=== PATIENT | male | born 1955 | race Caucasian/White ===

== ENCOUNTER 2018-02-18 08:18 | Inpatient (IN) | payer OTHER ==
[2018-02-18] VITALS (8 sets, daily range): BP systolic 106–174; BP diastolic 65–91
[~2018-02-18] VITALS: Ht 190.5 cm; Wt 120.7 kg
--- NOTE | ~2018-02-18 | EKG ---
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
--- NOTE | ~2018-02-18 | CATHLAB ---
[facility] [address] [place] [address] INVASIVE PROCEDURE REPORT Name: MILTONTETE Room #: 210-P [facility] IN [facility].#: [id number] Admission: 02/18/18 Attend Phys: Sy Villasenor MD Discharge: Date of : 55 Date of Service: 02/21/18 1035 Report #: [id number] THIS REPORT FOR: //name// APPROVED REPORT Study performed: 02/18/2018 16:18:49 Patient Details Patient Status: In-Patient Room #: The patient is a 63 year-old male Event Personnel Con Miranda Dehydration Plant Operator, Monique Pena [place], Christine RTR Monitor, Martin, Denisa RN RN, Sanjeev Bautista RN water plant pump operator Performed Art Access - R femoral artery* Left Heart Cath w/or w/o Coronaries [id number] [facility] [address] Initial Mod Sed Same Phys/QHP Gr5y [id number] Hemostasis with Manual pressure supervision of conscious sedation Indication Positive stress test, Chest pain Procedure Narrative The patient was brought urgently to the Cardiac Catheterization Laboratory and was prepped and draped in a sterile manner. The Right Groin^ was infiltrated with 1% Lidocaine subcutaneous anesthesia. A PINNACLE 6FR Sheath #[id number] sheath was inserted into the RFA^. Coronary angiography was performed using coronary diagnostic catheters. The right coronary system was accessed and visualized with a JR 4 catheter. The left coronary system was accessed and visualized with a JL 4 catheter. The left ventricle was accessed and visualized with a Pigtail catheter. Left ventricular/Aortic Valve gradient assessed via catheter pullback. Hemostasis was obtained with manual pressure following sheath removal without any complications. The patient tolerated the procedure well and there were no complications associated with the procedure. There was no hematoma. Intraoperative Conscious Sedation Sedation start time: 17:12 Case end Time: 17:23 Versed 2 mg [facility] [place] [address] INVASIVE PROCEDURE REPORT Name: TETE ROSE Room #: 210-P [facility] IN [facility]#: [id number] Admission: 02/18/18 Attend Phys: Sy Villasenor MD Discharge: Date of : 55 Date of Service: 02/21/18 1035 Report #: [id number] Fluoro Time: 2.20 minutes Dose: DAP 4566.50 cGycm2 572 mGy Contrast Type and Amount: Omnipaque 55 ml Coronary Angiography The patient's coronary anatomy is right dominant. Diagnostic Cath Left Main In his normal origin and caliber mildly calcified on fluoroscopic visualization. It bifurcates left anterior descending left circumflex. The distal portion has a taper and there is echogenicity consistent with calcific plaquing Eccentric noted. This is greater than 50%. LAD Small-caliber vessel has an eccentric 90% ostial lesion which is calcified and then continues in the anterior interventricular sulcus giving rise to septal and diagonal branches with moderate diffuse irregularities Diagonal 1 Small-caliber vessel without significant high-grade lesions noted Circumflex Moderate caliber vessel arises from the left main with an eccentric 70% or greater lesion identified. It is calcified. Then continues in the AV groove giving rise to marginal branches which are all free of significant high-grade stenosis OM1 Small caliber so this appears 7 ostial lesion but beyond that is free of significant obstructive no lesions Right Coronary Totally occluded at its origin and feels. Collaterals providing a posterior wall branch and posterior descending artery which have a mild irregularities R PDA Caliber vessel filling via [id number] collaterals without significant high-grade obstructive lesions Left Ventriculography Left Ventriculography was not performed. Hemodynamics The aortic pressure is 98/60 mmHg with a mean of 79 mmHg. The left ventricular pressure is 110/10 mmHg with a mean of mmHg. The left ventricular end diastolic pressure is 15 mmHg. Conclusion 1. Coronary disease multivessel involving the distal left main and proximal left circumflex and left anterior descending arteries as well as a totally occluded RCA 2. Abnormal hemodynamics elevated left ventricular end-diastolic [facility] [address] [place] [address] INVASIVE PROCEDURE REPORT Name: TETE ROSE Room #: 210-P [facility] IN M.R.#: [id number] Admission: 02/18/18 Attend Phys: Sy Villasenor MD Discharge: Date of : 55 Date of Service: 02/21/18 1035 Report #: [id number] Recommendations CABG <ELECTRONICALLY SIGNED> By: Con Miranda MD 02/21/185 34 34 Con Miranda MD /INF
--- NOTE | ~2018-02-18 | EXE ---
[facility] [place] [address] STRESS ECHOCARDIOGRAM Name: TETE ROSE Room #: 210-P [facility] IN [facility]#: [id number] Admission: 02/18/18 Attend Phys: Sy Villasenor MD Discharge: Date of : 55 Date of Service: 02/18/18 1813 Report #: [id number] THIS REPORT FOR: //name// APPROVED REPORT Study performed: 02/18/2018 15:30:08 Exam: Stress Echocardiogram Indication: Chest pain Patient Location: In-Patient Room #: 450 Status: routine Ht: 6 ft 3 in HR: 73 bpm BP: 140/88 mmHg Medical History Medical History: HTN, Hyperlipidemia Exercise History: Indeterminate Procedure The patient underwent an Exercise Stress Test using the [facility] Protocol. Blood pressure, heart rate, and EKG were monitored. An Echocardiogram was performed by highway technician in four stages in quad fashion. At peak stress, four selected images were obtained and placed side by side with resting images for comparison. Stress Test Details Stress Test: Exercise stress testing was performed using a [facility] protocol. HR Resting HR: 73 bpm Max Heart Rate (APMHR): 157 bpm Max HR Achieved: 162 bpm Target HR (85% APMHR): 133 bpm % of APMHR: 103 Recovery HR: 109 bpm HR response to stress: Normal HR response to stress BP Resting BP: 140/88 mmHg Max BP: 150/80 mmHg ECG Resting ECG: Sinus Rhythm Stress ECG: Sinus Tachycardia ST Change: Horizontal ST depression [facility] [place] [address] STRESS ECHOCARDIOGRAM Name: TETE ROSE Room #: 210-P [facility]#: [id number] Admission: 02/18/18 Attend Phys: Sy Villasenor MD Discharge: Date of : 55 Date of Service: 02/18/18 1813 Report #: [id number] Arrhythmia: None Recovery ECG: Sinus Rhythm Clinical Reason for Termination: Chest pain/Anginal equivalent Stress Symptoms: Chest pain Exercise duration: 3 min 30 sec Highest Stage Achieved: Stage 2: 2.5 mph at 12% grade. Exercise capacity: 8 METs Overall Exercise Capacity for Age: Poor Stress ECG Conclusion 1. Subjectively abnormal with reproduction of chest pain 2. Electrocardiographically abnormal with st changes consistent with ischemia 3. Poor functional capacity Pre-Stress Echo The resting Echocardiogram showed normal left ventricular contractility with an estimated Ejection Fraction of about >55%. Normal wall motion in all segments on baseline images. Post-Stress Echo The stress Echocardiogram showed abnormal left ventricular contractility with an estimated Ejection Fraction of about 40-45%. development of akinesis of the apex and adjacent casanova. Conclusion Clinical Response: Ischemic Exercise Capacity: Below Average Stress ECG Response: Ischemic Stress Echo Images: Ischemic 1. HIGH RISK STUDY Other Information Study Quality: Fair <Conclusion> 1. HIGH RISK STUDY <ELECTRONICALLY SIGNED> By: Con Miranda MD 02/18/181812 12 12 Con Miranda MD /INF
--- NOTE | ~2018-02-18 | EKG ---
[place] [address] [facility] [employer] 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 : 1955 Requested By: Judith Knight Order Number: [id number] MD: Boo Olea Measurements Intervals [place] Rate: 89 P: 28 [place]: 148 QRS: -19 QRSD: 103 T: 39 QT: 390 QTc: 475 Interpretive Statements Sinus rhythm Poor R wave progression RSR' in V1 or V2, probably normal variant ST elevation, consider pericarditis Compared to ECG 02/22/2018 15:29:20 No significant change was found Electronically Signed On 02-23-2018 7:55:13 CDT by Boo Olea [email or web address] <ELECTRONICALLY SIGNED> By: Boo Olea MD, [facility] 02/23/18 0755 Boo Olea MD, [facility] /EPI
--- NOTE | ~2018-02-18 | EKG ---
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: Cinthya HYDE : 1955 Requested By: Judith Knight Order Number: [id number] MD: Jhoan Newton Measurements Intervals [place] Rate: 89 P: 46 ME: 186 QRS: -10 QRSD: 103 T: 59 QT: 383 QTc: 467 Interpretive Statements Sinus rhythm Low voltage, precordial leads Abnormal R-wave progression, early transition Minimal ST elevation, anterior leads Compared to ECG 02/18/2018 08:26:19 Low QRS voltage now present ST (T wave) deviation now present Intraventricular conduction delay no longer present Electronically Signed On 02-22-2018 16:39:30 CDT by Jhoan Newton [email or web address] <ELECTRONICALLY SIGNED> By: Jhoan Newton MD 02/22/18 1639 1529 1529 Jhoan Newton MD /EPI
--- NOTE | ~2018-02-18 | 2DMMODE ---
[place] [address] [facility] [place] [address] 2 D/M-MODE ECHOCARDIOGRAM Name: BOO ROSE Room #: 450-P [facility] IN .R.#: [id number] Admission: 02/18/18 Attend Phys: Sy Villasenor MD Discharge: Date of : 55 Date of Service: 02/18/18 1533 Report #: [id number] THIS REPORT FOR: //name// APPROVED REPORT Study performed: 02/18/2018 13:53:10 EXAM: Comprehensive 2D, Doppler, and color-flow Echocardiogram Patient Location: Echo lab Room #: [facility] Status: routine BSA: 2.45 HR: 62 bpm BP: 139/87 mmHg Rhythm: NSR Other Information Study Quality: Adequate Technically limited study due to obesity. Indications Chest pain. Hx: HTN, HLP. 2D Dimensions RVDd: 38.77 mm LVEF(%): 49.76 (>50%) IVSd: 11.92 (7-11mm) LVOT Diam: 23.21 (18-24mm) LVDd: 57.92 mm PWd: 8.70 (7-11mm) LVDs: 43.07 (25-40mm) Aortic Root: 34.32 mm Boothe's LVEF: 49.76 % Volumes Left Atrial Volume (Systole) Single Plane 4CH: 65.69 mL Single Plane 2CH: 52.31 mL LA ESV Index: 26.00 mL/m2 Aortic Valve AoV Peak Ollie.: 1.42 m/s AO Peak Gr.: 8.09 mmHg LVOT Max P.43 mmHg LVOT Max V: 1.05 m/s DAVID Vmax: 3.13 cm2 Mitral Valve E/A Ratio: 1.3 [facility] [place] [address] 2 D/M-MODE ECHOCARDIOGRAM Name: BOO ROSE Room #: [address] [place] [address]#: [id number] Admission: 02/18/18 Attend Phys: Sy Villasenor MD Discharge: Date of : 55 Date of Service: 02/18/18 1533 Report #: [id number] MV Decel. Time: 214.05 ms MV E Max Ollie.: 0.70 m/s MV A Ollie.: 0.54 m/s MV PHT: 62.08 ms IVRT: 87.66 ms Pulmonary Valve PV Peak Lolie.: 1.23 m/s PV Peak Gr.: 6.07 mmHg Pulmonary Vein P Vein S: 0.57 m/s P Vein A: 0.31 m/s P Vein D: 0.65 m/s P Vein S/D Ratio: 0.88 Tricuspid Valve TR Peak Ollie.: 2.46 m/s RAP Estimate: 5.00 mmHg TR Peak Gr.: 24.11 mmHg PA Pressure: 29.00 mmHg Left Ventricle The left ventricle is normal size. There is normal LV segmental wall motion. There is normal left ventricular wall thickness. Left ventricular systolic function is normal. LVEF is 55%. The left ventricular diastolic function is normal. Right Ventricle The right ventricle is normal size. The right ventricular systolic function is normal. Atria The left atrium size is normal. The right atrium size is normal. Aortic Valve The aortic valve is normal in structure. No aortic regurgitation is present. There is no aortic valvular stenosis. Mitral Valve The mitral valve is normal in structure. Difficult to characterize. Mild to moderate range. Tricuspid Valve The tricuspid valve is normal in structure. Trace to mild tricuspid regurgitation. Estimated PAP is 30mmHg. Pulmonic Valve [address] [address] 2 D/M-MODE ECHOCARDIOGRAM Name: BOO ROSE Room #: 450-P [facility] IN ..#: [id number] Admission: 02/18/18 Attend Phys: Sy Villasenor MD Discharge: Date of : 55 Date of Service: 02/18/18 1533 Report #: [id number] Pulmonic valve is not well visualized. Great Vessels The aortic root is normal in size. Ascending aorta is not well visualized. IVC is normal in size and collapses >50% with inspiration. Pericardium There is no pericardial effusion. <Conclusion> Technically difficult study Left ventricular systolic function is normal. There is normal LV segmental wall motion. LVEF 55%. Normal diastolic function The aortic valve is normal in structure. No aortic regurgitation or stenosis The mitral valve is normal in structure. Difficult to characterize insufficiency. Mild to moderate range. Trace to mild tricuspid regurgitation. Estimated pulmonary artery pressure of 30mmHg. There is no pericardial effusion. <ELECTRONICALLY SIGNED> By: Boo Olea MD, FACC 02/18/18 1533 1533 1533 Boo Olea MD, FACC /INF
[2018-02-18 08:44] LABS: ABSOLUTE NEUTROPHILS 2.5 thou/uL (1.4-8.2); EOSINOPHILS 1.7 % (0.0-3.0); HEMOGLOBIN 14.4 gm/dL (14.0-18.0); LYMPHOCYTES 29.4 % (24.0-44.0); MCH 33.8 pg (26.0-34.0); MCHC 35.1 g/dL (28.0-37.0); MCV 96.4 fL (80.0-100.0); MONOCYTES 10.1 % (1.0-8.0); PLATELET COUNT 150 thou/uL (150-400); POLYS 57.8 % (36.0-66.0); RBC 4.25 mil/uL (4.50-6.00); RDW 12.5 % (10.5-14.5); WBC 4.3 thou/uL (4.0-11.0)
[2018-02-18 08:53] LABS: ANION GAP 7 mmol/L (7-16); BUN 12 mg/dL (7-18); CALCIUM 9.3 mg/dL (8.5-10.1); CHLORIDE 106 mmol/L (98-107); CO2 27 mmol/L (21-32); CREATININE 0.9 mg/dL (0.7-1.3); GLUCOSE 135 mg/dL (74-106); SODIUM 140 mmol/L (136-145)
[2018-02-18 09:02] LABS: TROPONIN-I < 0.04 ng/mL (<0.06)
[2018-02-18] MEDS ORDERED: CARDURA4 MG PO (10:20)
[2018-02-18] MEDS ORDERED: LISINOPRIL10 MG PO (10:20)
[2018-02-18] MEDS ORDERED: FENOFIBRATE160 MG PO (10:21)
[2018-02-18] MEDS ORDERED: PROTONIX40 M1 PO (10:21)
[2018-02-18] MEDS ORDERED: LOVAZA1000 MG PO (10:22)
[2018-02-18] MEDS ORDERED: NABUMETONE 500500 M1 PO (10:22)
[2018-02-18] MEDS ORDERED: LIPITOR 20 MG T20 M1 PO (10:22)
[2018-02-19 00:10] VITALS: BP 115/73
[2018-02-19 04:37] LABS: HEMATOCRIT 37.6 % (42.0-52.0); HEMOGLOBIN 13.5 gm/dL (14.0-18.0); MCH 34.5 pg (26.0-34.0); MCHC 35.9 g/dL (28.0-37.0); MCV 96.2 fL (80.0-100.0); RBC 3.91 mil/uL (4.50-6.00); RDW 12.6 % (10.5-14.5); WBC 5.5 thou/uL (4.0-11.0)
[2018-02-19 04:53] LABS: ANION GAP 7 mmol/L (7-16); BUN 12 mg/dL (7-18); CALCIUM 8.7 mg/dL (8.5-10.1); CHLORIDE 105 mmol/L (98-107); CHOLESTEROL 146 mg/dL (<200); CO2 26 mmol/L (21-32); GLUCOSE 120 mg/dL (74-106); HDL CHOLESTEROL 31 mg/dL (>40); LDL CHOLESTEROL 63 mg/dL (<100); POTASSIUM 4.2 mmol/L (3.5-5.1); SODIUM 138 mmol/L (136-145); TC:HDL 4.7 Ratio (Not establshd); TRIGLYCERIDE 264 mg/dL (<150); VLDL 53 mg/dL (<40)
[2018-02-19 04:54] LABS: SERUM ASSESSMENT Clear
[2018-02-19 05:40] VITALS: BP 135/87
[2018-02-19 08:00] VITALS: BP 136/88
[2018-02-19 12:00] VITALS: BP 103/85
[2018-02-19 16:00] VITALS: BP 131/64
[2018-02-19 19:47] VITALS: BP 117/73
[2018-02-19 21:22] LABS: ALBUMIN 3.6 g/dL (3.4-5.0); CALCIUM 8.7 mg/dL (8.5-10.1); CREATININE 0.9 mg/dL (0.7-1.3); POTASSIUM 3.6 mmol/L (3.5-5.1); TOTAL BILIRUBIN 0.6 mg/dL (<0.1-1.0); TOTAL PROTEIN 6.3 g/dL (6.4-8.2)
[2018-02-20 04:58] VITALS: BP 112/62
[2018-02-20 05:00] LABS: CALCIUM 9.3 mg/dL (8.5-10.1)
[2018-02-20 08:10] VITALS: BP 149/76
[2018-02-20 11:40] VITALS: BP 102/70
[2018-02-20 16:15] VITALS: BP 128/69
[2018-02-20 21:33] VITALS: BP 135/69
[2018-02-20 23:42] LABS: ALBUMIN 4.1 g/dL (3.4-5.0); DIRECT BILIRUBIN 0.2 mg/dL (<0.1-0.3); TOTAL BILIRUBIN 0.7 mg/dL (<0.1-1.0); TOTAL PROTEIN 6.8 g/dL (6.4-8.2)
[2018-02-21] VITALS (7 sets, daily range): BP systolic 104–155; BP diastolic 58–87
[2018-02-21 03:57] LABS: APTT 23.3 Seconds (24.5-32.8); PROTIME 10.6 Seconds (9.3-11.4)
[2018-02-21 10:10] LABS: GLYCOHEMOGLOBIN (HGB A1C) 5.3 % (4.8-5.6)
[2018-02-21 11:06] LABS: URINE BILIRUBIN NEGATIVE (Negative); URINE BLOOD NEGATIVE (Negative); URINE CLARITY CLEAR; URINE COLOR YELLOW; URINE GLUCOSE-RANDOM* NEGATIVE (Negative); URINE KETONES NEGATIVE (Negative); URINE LEUKOCYTES-REFLEX NEGATIVE (Negative); URINE NITRITE-REFLEX NEGATIVE (Negative); URINE PROTEIN (DIPSTICK) NEGATIVE (Negative); URINE UROBILINOGEN 0.2 E.U./dl (0.2-1.0)
[2018-02-21 11:24] LABS: HEMATOCRIT 38.3 % (42.0-52.0); HEMOGLOBIN 13.4 gm/dL (14.0-18.0); MCH 33.6 pg (26.0-34.0); MCHC 35.1 g/dL (28.0-37.0); MCV 95.8 fL (80.0-100.0); RDW 12.2 % (10.5-14.5)
[2018-02-22 06:25] VITALS: BP 154/86
[2018-02-22 12:36] LABS: MCH 34.7 pg (26.0-34.0); MCHC 36.2 g/dL (28.0-37.0); MCV 96.1 fL (80.0-100.0); RBC 2.82 mil/uL (4.50-6.00); RDW 12.2 % (10.5-14.5)
[2018-02-22 12:37] LABS: HEMATOCRIT 27.1 % (42.0-52.0); HEMOGLOBIN 9.8 gm/dL (14.0-18.0)
[2018-02-22 12:50] LABS: APTT 21.9 Seconds (24.5-32.8); INR 1.3; PROTIME 13.1 Seconds (9.3-11.4)
[2018-02-22 12:51] LABS: FIBRINOGEN 144.5 mg/dL (210-360)
[2018-02-22 13:22] LABS: POC BE 5 mmol/L (-2.0 to +3.0); POC CA IONIZED 4.8 mg/dL (4.5-5.3); POC GLUCOSE 121 mg/dL (70-99); POC HCO3 29.7 mmol/L (22.0-26.0); POC HEMOGLOBIN 10.9 g/dL (14.0-18.0); POC POTASSIUM 4.4 mmol/L (3.5-5.1); POC SODIUM 138 mmol/L (136-145); POC pCO2 44.3 mmHg (35.0-45.0); POC pH 7.435 (7.360-7.450)
[2018-02-22 13:22] LABS: POC CA IONIZED 4.5 mg/dL (4.5-5.3); POC GLUCOSE 142 mg/dL (70-99); POC HEMOGLOBIN 10.2 g/dL (14.0-18.0); POC POTASSIUM 4.5 mmol/L (3.5-5.1); POC SODIUM 138 mmol/L (136-145)
[2018-02-22 13:22] LABS: POC BE 1 mmol/L (-2.0 to +3.0); POC CA IONIZED 4.4 mg/dL (4.5-5.3); POC GLUCOSE 146 mg/dL (70-99); POC HCO3 26.1 mmol/L (22.0-26.0); POC HEMOGLOBIN 10.2 g/dL (14.0-18.0); POC POTASSIUM 4.4 mmol/L (3.5-5.1); POC SODIUM 137 mmol/L (136-145); POC pCO2 44.5 mmHg (35.0-45.0); POC pH 7.376 (7.360-7.450)
[2018-02-22 13:22] LABS: POC BE 2 mmol/L (-2.0 to +3.0); POC CA IONIZED 4.6 mg/dL (4.5-5.3); POC GLUCOSE 117 mg/dL (70-99); POC HCO3 27.1 mmol/L (22.0-26.0); POC HEMOGLOBIN 10.5 g/dL (14.0-18.0); POC POTASSIUM 4.4 mmol/L (3.5-5.1); POC SODIUM 138 mmol/L (136-145); POC pCO2 44.7 mmHg (35.0-45.0)
[2018-02-22 13:23] LABS: POC BE 2 mmol/L (-2.0 to +3.0); POC CA IONIZED 4.5 mg/dL (4.5-5.3); POC GLUCOSE 144 mg/dL (70-99); POC HCO3 26.9 mmol/L (22.0-26.0); POC HEMOGLOBIN 9.5 g/dL (14.0-18.0); POC POTASSIUM 4.7 mmol/L (3.5-5.1); POC SODIUM 137 mmol/L (136-145); POC pCO2 44.6 mmHg (35.0-45.0); POC pH 7.388 (7.360-7.450)
[2018-02-22 13:23] LABS: POC BE 0 mmol/L (-2.0 to +3.0); POC CA IONIZED 5.7 mg/dL (4.5-5.3); POC GLUCOSE 145 mg/dL (70-99); POC HCO3 25.4 mmol/L (22.0-26.0); POC HEMOGLOBIN 9.5 g/dL (14.0-18.0); POC POTASSIUM 3.8 mmol/L (3.5-5.1); POC SODIUM 140 mmol/L (136-145); POC pCO2 45.2 mmHg (35.0-45.0); POC pH 7.357 (7.360-7.450)
[2018-02-22 13:23] LABS: POC BE 1 mmol/L (-2.0 to +3.0); POC HCO3 26.1 mmol/L (22.0-26.0); POC pCO2 45.5 mmHg (35.0-45.0); POC pH 7.367 (7.360-7.450)
[2018-02-22 13:23] LABS: POC BE 1 mmol/L (-2.0 to +3.0); POC CA IONIZED 4.4 mg/dL (4.5-5.3); POC GLUCOSE 148 mg/dL (70-99); POC HCO3 25.2 mmol/L (22.0-26.0); POC HEMOGLOBIN 9.2 g/dL (14.0-18.0); POC POTASSIUM 4.7 mmol/L (3.5-5.1); POC SODIUM 138 mmol/L (136-145); POC pCO2 36.9 mmHg (35.0-45.0); POC pH 7.443 (7.360-7.450)
[2018-02-22 13:23] LABS: POC BE 2 mmol/L (-2.0 to +3.0); POC CA IONIZED 6.2 mg/dL (4.5-5.3); POC GLUCOSE 182 mg/dL (70-99); POC HCO3 27.4 mmol/L (22.0-26.0); POC HEMOGLOBIN 8.8 g/dL (14.0-18.0); POC POTASSIUM 3.9 mmol/L (3.5-5.1); POC SODIUM 137 mmol/L (136-145); POC pCO2 45.4 mmHg (35.0-45.0)
[2018-02-22 13:23] LABS: POC BE 0 mmol/L (-2.0 to +3.0); POC GLUCOSE 207 mg/dL (70-99); POC HCO3 25.2 mmol/L (22.0-26.0); POC HEMOGLOBIN 8.8 g/dL (14.0-18.0); POC POTASSIUM 4.8 mmol/L (3.5-5.1); POC SODIUM 134 mmol/L (136-145); POC pCO2 40.5 mmHg (35.0-45.0); POC pH 7.401 (7.360-7.450)
[2018-02-22 14:35] LABS: MCH 34.3 pg (26.0-34.0); MCHC 35.5 g/dL (28.0-37.0); MCV 96.7 fL (80.0-100.0); RBC 3.21 mil/uL (4.50-6.00); RDW 12.3 % (10.5-14.5); WBC 12.6 thou/uL (4.0-11.0)
[2018-02-22 14:40] LABS: CALCIUM 9.3 mg/dL (8.5-10.1); CREATININE 0.9 mg/dL (0.7-1.3); MAGNESIUM 2.4 mg/dL (1.8-2.4); POTASSIUM 4.2 mmol/L (3.5-5.1)
[2018-02-22 14:49] LABS: APTT 24.3 Seconds (24.5-32.8); INR 1.2
[2018-02-23] VITALS (7 sets, daily range): BP systolic 91–141; BP diastolic 56–70
[2018-02-23 05:35] LABS: HEMATOCRIT 30.5 % (42.0-52.0); HEMOGLOBIN 10.8 gm/dL (14.0-18.0); MCH 34.3 pg (26.0-34.0); MCHC 35.3 g/dL (28.0-37.0); MCV 97.1 fL (80.0-100.0); RBC 3.15 mil/uL (4.50-6.00); RDW 12.5 % (10.5-14.5); WBC 10.7 thou/uL (4.0-11.0)
[2018-02-23 05:49] LABS: CALCIUM 8.4 mg/dL (8.5-10.1); CREATININE 1.1 mg/dL (0.7-1.3); MAGNESIUM 1.9 mg/dL (1.8-2.4)
[2018-02-24] VITALS: BP 114/88
[2018-02-24 03:56] VITALS: BP 114/74
[2018-02-24 04:13] LABS: CALCIUM 8.5 mg/dL (8.5-10.1); MAGNESIUM 1.9 mg/dL (1.8-2.4); POTASSIUM 4.2 mmol/L (3.5-5.1)
[2018-02-24 04:40] LABS: HEMATOCRIT 28.3 % (42.0-52.0); MCH 34.3 pg (26.0-34.0); MCHC 35.4 g/dL (28.0-37.0); RBC 2.91 mil/uL (4.50-6.00); RDW 12.7 % (10.5-14.5); WBC 12.6 thou/uL (4.0-11.0)
[2018-02-24 07:06] VITALS: BP 122/76
[2018-02-24 09:37] LABS: BE(vivo) -6.3 mmol/L (-2 to +3); HCO3 19.8 mmol/L (22.0-26.0); PCO2 41.5 mmHg (35.0-45.0); PO2 148.4 mmHg (80.0-100.0); sO2 98.7 % (92.0-98.0)
[2018-02-24 09:44] LABS: pH 7.296 (7.360-7.450)
[2018-02-24 09:52] LABS: HCO3 21.1 mmol/L (22.0-26.0); PCO2 38.4 mmHg (35.0-45.0); PO2 123.4 mmHg (80.0-100.0); pH 7.357 (7.360-7.450); sO2 98.3 % (92.0-98.0)
[2018-02-24 11:03] VITALS: BP 124/72
[2018-02-24 15:04] VITALS: BP 129/67
[2018-02-24 19:58] VITALS: BP 134/78
[2018-02-25] VITALS (7 sets, daily range): BP systolic 121–146; BP diastolic 66–76
[2018-02-25 04:05] LABS: CALCIUM 9.3 mg/dL (8.5-10.1); CREATININE 0.9 mg/dL (0.7-1.3); POTASSIUM 4.1 mmol/L (3.5-5.1)
[2018-02-25] MEDS ORDERED: LOPRESSOR25 PO (09:11)
[2018-02-25] MEDS ORDERED: ASPIRIN EC325 M1 PO (09:11)
[2018-02-25] MEDS ORDERED: SENNA-TIME S T1 EACH PO (09:11)
[2018-02-25] MEDS ORDERED: PACERONE 200 M200 M1 PO (17:46)
== END 2018-02-25 18:47 | disposition home or self-care (01) | DRG 233 ==
LOC: ER 08:18 → EROBS 09:55 → 4W 09:55 → 2N 09:55 → 4W 10:45 → 2N 17:57 → TBA 02-22 07:22 → ICU 02-22 14:20 → 2N 02-23 17:10 → ENTRNSPT 02-25 18:34 → 2N 02-25 18:47
PROVIDERS: Emergency Medicine; Family Medicine; Hospitalist; Internal Medicine; Internal Medicine Geriatric Medicine; Nurse Practitioner; Nurse Practitioner Acute Care; Nurse Practitioner Adult Health; Thoracic Surgery (Cardiothoracic Vascular Surgery)
PROC: B2111ZZ Fluoroscopy of Multiple Coronary Arteries using Low Osmolar Contrast (ICD-10-PCS; principal; 2018-02-21)
PROC: 4A023N7 Measurement of Cardiac Sampling and Pressure, Left Heart, Percutaneous Approach (ICD-10-PCS; principal; 2018-02-21)
PROC: 5A1221Z Performance of Cardiac Output, Continuous (ICD-10-PCS; 2018-02-22)
PROC: 03BC4ZZ Excision of Left Radial Artery, Percutaneous Endoscopic Approach (ICD-10-PCS; 2018-02-22)
PROC: 02HQ32Z Insertion of Monitoring Device into Right Pulmonary Artery, Percutaneous Approach (ICD-10-PCS; 2018-02-22)
PROC: 0BH17EZ Insertion of Endotracheal Airway into Trachea, Via Natural or Artificial Opening (ICD-10-PCS; 2018-02-22)
PROC: 4A133J1 Monitoring of Arterial Pulse, Peripheral, Percutaneous Approach (ICD-10-PCS; 2018-02-22)
PROC: 021109W Bypass Coronary Artery, Two Arteries from Aorta with Autologous Venous Tissue, Open Approach (ICD-10-PCS; 2018-02-22)
PROC: 06BQ4ZZ Excision of Left Saphenous Vein, Percutaneous Endoscopic Approach (ICD-10-PCS; 2018-02-22)
PROC: 02100Z9 Bypass Coronary Artery, One Artery from Left Internal Mammary, Open Approach (ICD-10-PCS; 2018-02-22)
PROC: 03HY32Z Insertion of Monitoring Device into Upper Artery, Percutaneous Approach (ICD-10-PCS; 2018-02-22)
PROC: 5A1935Z Respiratory Ventilation, Less than 24 Consecutive Hours (ICD-10-PCS; 2018-02-22)
PROC: 4A133B1 Monitoring of Arterial Pressure, Peripheral, Percutaneous Approach (ICD-10-PCS; 2018-02-22)
DX: I25.110 Atherosclerotic heart disease of native coronary artery with unstable angina pectoris (principal); E43 Unspecified severe protein-calorie malnutrition; D62 Acute posthemorrhagic anemia; F17.220 Nicotine dependence, chewing tobacco, uncomplicated; I10 Essential (primary) hypertension; E66.9 Obesity, unspecified; E78.00 Pure hypercholesterolemia, unspecified; K21.9 Gastro-esophageal reflux disease without esophagitis; E78.5 Hyperlipidemia, unspecified; E78.1 Pure hyperglyceridemia; Z82.49 Family history of ischemic heart disease and other diseases of the circulatory system; Z68.33 Body mass index [BMI] 33.0-33.9, adult; Z79.899 Other long term (current) drug therapy; Z79.82 Long term (current) use of aspirin
CPT/HCPCS: 10078; 10081; 47000; 47001; 47002; 47297; 50010; 50249; 50409; 50456; 50497; 50668; 51301; 52131; 52190; 52314; 53327; 53358; 54118; 56524; 56525; 56526; 56527; 56528; 56529; 56531; 56534; 56639; 56668; 56760; 56898; 57093; 62110; 62950; 64029; 65002; 65020; 65043; 65045; 65047; 65090; 83006

== ENCOUNTER → 2018-03-16 | Outpatient (CLI) | payer OTHER ==
[~2018-03-16] MED LIST: ASPIRIN EC325 M1 PO; CARDURA4 MG PO; FENOFIBRATE160 MG PO; LIPITOR 20 MG T20 M1 PO; LISINOPRIL10 MG PO; LOPRESSOR25 PO; LOVAZA1000 MG PO; NABUMETONE 500500 M1 PO; PACERONE 200 M200 M1 PO; PROTONIX40 M1 PO; SENNA-TIME S T1 EACH PO
== END ==
LOC: RAD 12:21
DX: J98.11 Atelectasis (principal); I25.10 Atherosclerotic heart disease of native coronary artery without angina pectoris

== ENCOUNTER → 2018-07-21 | Outpatient (CLI) | payer OTHER | LOC: ULTRA 07:36 | DX: K76.0 Fatty (change of) liver, not elsewhere classified (principal); N20.0 Calculus of kidney; R16.0 Hepatomegaly, not elsewhere classified ==

== ENCOUNTER 2018-11-27 11:47 | Inpatient (IN) | payer OTHER ==
[~2018-11-27] VITALS: Ht 190.5 cm; Wt 111.1 kg
[2018-11-27 11:48] VITALS: BP 126/38
[2018-11-27 12:10] LABS: ABSOLUTE NEUTROPHILS 4.5 thou/uL (1.4-8.2); BASOPHILS 0.9 % (0.0-2.0); HEMATOCRIT 37.5 % (42.0-52.0); HEMOGLOBIN 12.8 gm/dL (14.0-18.0); LYMPHOCYTES 15.3 % (24.0-44.0); MCH 33.6 pg (26.0-34.0); MCHC 34.2 g/dL (28.0-37.0); MCV 98.2 fL (80.0-100.0); PLATELET COUNT 144 thou/uL (150-400); POLYS 72.8 % (36.0-66.0); RBC 3.82 mil/uL (4.50-6.00); RDW 13.1 % (10.5-14.5); WBC 6.1 thou/uL (4.0-11.0)
[2018-11-27 12:18] LABS: ANION GAP 8 mmol/L (7-16); BUN 22 mg/dL (7-18); CALCIUM 8.5 mg/dL (8.5-10.1); CHLORIDE 102 mmol/L (98-107); CO2 25 mmol/L (21-32); CREATININE 1.4 mg/dL (0.7-1.3); GLUCOSE 129 mg/dL (74-106); POTASSIUM 4.6 mmol/L (3.5-5.1); SODIUM 135 mmol/L (136-145)
[2018-11-27 12:27] LABS: TROPONIN-I <0.06 ng/mL (<0.06)
[2018-11-27 14:53] VITALS: BP 116/43
[2018-11-27 15:42] VITALS: BP 124/58
[2018-11-27 15:48] VITALS: BP 140/57
[2018-11-27] MEDS ORDERED: CRESTOR10 MG PO (18:28)
[2018-11-27 20:07] VITALS: BP 129/60
--- NOTE | 2018-11-27 20:11 | NUR ---
1550. PT ARRIVED TO UNIT FROM ER. PT AMBULATED FROM CART TO BED WITH MINIMAL ASSISTANCE. PT PLACED ON FALL RISK PRECAUTIONS DUE TO RECENT NEAR SYNCOPAL EPISODES TODAY WITH DIZZINESS. PT DENIES PAIN. PT A&OX4 AND FOLLOWS ALL COMMANDS. NO SOA, NO CHEST PAIN. 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
[2018-11-28 00:35] VITALS: BP 111/57
--- NOTE | 2018-11-28 03:21 | NUR ---
ASSESSMENT DOCUMENTED.PT RESTING IN NO ACUTE DISTRESS.DENIES CHEST PAIN.VSS.ON MONITOR SINUS BRADYCARDIAC.NO SYNCOPY EPISODES REPORTED.SBA WITH TOILETING AND TRANSFERS.IVF INFUSING.POC IS TO CONTINUES WITH ABT THERAPY,HYDRATION AND MONITOR.WILL CONT TO MONITOR PER POC.
[2018-11-28 04:10] VITALS: BP 125/60
[2018-11-28 07:56] VITALS: BP 132/75
[2018-11-28 08:48] LABS: HEMATOCRIT 35.9 % (42.0-52.0); HEMOGLOBIN 12.3 gm/dL (14.0-18.0); MCH 33.5 pg (26.0-34.0); MCHC 34.3 g/dL (28.0-37.0); MCV 97.5 fL (80.0-100.0); RBC 3.68 mil/uL (4.50-6.00); RDW 12.9 % (10.5-14.5); WBC 6.4 thou/uL (4.0-11.0)
--- NOTE | 2018-11-28 08:56 | EKG ---
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: SATNAM : 1955 Requested By: Greg Reza Order Number: [id number] MD: Boo Olea Measurements Intervals [place] Rate: 50 P: 0 IN: 181 QRS: -23 QRSD: 123 T: 36 QT: 567 QTc: 518 Interpretive Statements Sinus bradycardia Nonspecific T wave abnormality Compared to ECG 02/23/2018 06:30:48 Minimal, diffuse ST segment elevation no longer present Electronically Signed On 11-28-2018 8:56:25 CDT by Boo Olea [email or web address] ��������������������������������������������� <ELECTRONICALLY SIGNED> ���������������������������������������� By: Boo Olea MD, [facility] ��������������������������������������������� 11/28/18 0856 1153 1153 Boo Olea MD, [facility] /EPI
[2018-11-28 08:57] LABS: CALCIUM 8.3 mg/dL (8.5-10.1); CREATININE 1.1 mg/dL (0.7-1.3); POTASSIUM 4.2 mmol/L (3.5-5.1)
[2018-11-28 09:13] LABS: CHOLESTEROL 111 mg/dL (<200); HDL CHOLESTEROL 31 mg/dL (>40); LDL CHOLESTEROL 60 mg/dL (<100); TC:HDL 3.6 Ratio (Not establshd); TRIGLYCERIDE 103 mg/dL (<150); VLDL 21 mg/dL (<40)
[2018-11-28] MEDS ORDERED: PREDNISONE 10 M10 MG PO (11:07)
[2018-11-28] MEDS ORDERED: CEFDINIR300 MG PO (11:07)
[2018-11-28 11:19] VITALS: BP 127/60
--- NOTE | 2018-11-28 12:10 | 2DMMODE ---
[facility] [address] [place] [address] 2 D/M-MODE ECHOCARDIOGRAM Name: TETE ROSE Room #: 207-P [facility] IN ..#: [id number] ������������� Admission: 11/27/18 ������������� Attend Phys: Virgilio Tucker, Discharge: ��� ������������� ��� Date of : 55 Date of Service: 11/28/18 1210 �� Report #: [id number] �������� ��������������������������������������������[id number] THIS REPORT FOR: //name// APPROVED REPORT Study performed: 11/28/2018 09:49:32 EXAM: Comprehensive 2D, Doppler, and color-flow Echocardiogram Patient Location: Bedside Room #: [facility] Status: routine BSA: 2.39 HR: 68 bpm BP: 132/75 mmHg Rhythm: NSR Other Information Study Quality: Adequate Risk Factors: Cardiac Risk Factors: HTN, Hyperlipidemia Indications Dyspnea CAD Chest Pain 2D Dimensions IVSd: 7.79 (7-11mm) LVOT Diam: 21.00 (18-24mm) LVDd: 58.25 mm PWd: 10.31 (7-11mm) LVDs: 42.08 (25-40mm) Aortic Root: 25.25 mm LV Single Plane 4CH: 56.00 % LV Single Plane 2CH: 56.58 % Biplane EF: 53.9 % Volumes Left Atrial Volume (Systole) Single Plane 4CH: 72.50 mL Single Plane 2CH: 69.14 mL LA ESV Index: 32.00 mL/m2 Aortic Valve AoV Peak Ollie.: 1.53 m/s AO Peak Gr.: 9.30 mmHg LVOT Max P.25 mmHg [facility] [address] [place] [address] 2 D/M-MODE ECHOCARDIOGRAM Name: TETE ROSE Room #: 207-P [facility]#: [id number] ������������� Admission: 11/27/18 ������������� Attend Phys: Virgilio Tucker, Discharge: ��� ������������� ��� Date of : 55 Date of Service: 11/28/18 1210 �� Report #: [id number] �������� ��������������������������������������������[id number] LVOT Max V: 1.03 m/s DAVID Vmax: 2.38 cm2 Mitral Valve E/A Ratio: 1.1 MV Decel. Time: 355.62 ms MV E Max Ollie.: 0.85 m/s MV A Ollie.: 0.75 m/s MV PHT: 103.13 ms IVRT: 64.59 ms TDI E/Lateral E': 9.44 E/Medial E': 14.17 Medial E' Ollie.: 0.06 m/s Lateral E' Ollie.: 0.09 m/s Pulmonary Valve PV Peak Ollie.: 1.29 m/s PV Peak Gr.: 6.61 mmHg Pulmonary Vein P Vein S: 0.67 m/s P Vein A: 0.00 m/s P Vein D: 0.77 m/s P Vein S/D Ratio: 0.87 Tricuspid Valve TR Peak Ollie.: 2.92 m/s RAP Estimate: 7.00 mmHg TR Peak Gr.: 34.07 mmHg PA Pressure: 41.00 mmHg Left Ventricle Left ventricle is dilated. There is normal LV segmental wall motion. There is normal left ventricular wall thickness. Left ventricular systolic function is normal. The left ventricular ejection fraction is within the normal range. LVEF is 55%. The left ventricular diastolic function is normal. Right Ventricle The right ventricle is normal size. The right ventricular systolic function is normal. Atria The left atrium size is normal. Right atrium is borderline dilated. Aortic Valve The aortic valve is normal in structure. [place] [address] 2 D/M-MODE ECHOCARDIOGRAM Name: TETE ROSE Room #: 207-P [facility] IN ..#: [id number] ������������� Admission: 11/27/18 ������������� Attend Phys: Virgilio Tucker, Discharge: ��� ������������� ��� Date of : 55 Date of Service: 11/28/18 1210 �� Report #: [id number] �������� ��������������������������������������������[id number] present. There is no aortic valvular stenosis. Mitral Valve The mitral valve is normal in structure. Mild mitral regurgitation. No evidence of mitral valve stenosis. Tricuspid Valve The tricuspid valve is normal in structure. Mild tricuspid regurgitation. Pulmonary artery pressure is 41 mmHg. Pulmonic Valve The pulmonary valve is normal in structure. There is no pulmonic valvular regurgitation. Great Vessels The aortic root is normal in size. IVC is normal in size and collapses >50% with inspiration. Pericardium There is no pericardial effusion. <Conclusion> Left ventricle is dilated. LVEF is 55%. The aortic valve is normal in structure. The mitral valve is normal in structure. Mild mitral regurgitation. The tricuspid valve is normal in structure. Mild tricuspid regurgitation. Pulmonary artery pressure is 41 mmHg. The pulmonary valve is normal in structure. There is no pericardial effusion. ��������������������������������������������� <ELECTRONICALLY SIGNED> ���������������������������������������� By: Con Miranda MD ��������������������������������������������� 11/28/18 1210 09 09 Con Miranda MD /INF
[2018-11-28 16:08] VITALS: BP 127/71
[2018-11-28 17:17] VITALS: BP 127/71
--- NOTE | 2018-11-28 17:46 | NUR ---
ASSESSMENT DOCUMENTED. PT ALERT AND ORIENTED. DENIED HAVING PAIN OR DISCOMFORT. VSS. SEEN BY DR. ANNA AND DR. MENENDEZ. ORDERS GIVEN TO DISCHARGE PT TO HOME. DISCHARGE INSTRUCTIONS GIVEN TO PT AND THE . PT VERBERLIZED UNDERSTANDING.
== END 2018-11-28 17:56 | disposition home or self-care (01) | DRG 205 ==
LOC: ER 11:47 → EROBS 14:05 → 2N 14:05
PROVIDERS: Emergency Medicine; Nurse Practitioner; ADMIT Family Medicine
DX: J22 Unspecified acute lower respiratory infection (principal); E43 Unspecified severe protein-calorie malnutrition; N17.9 Acute kidney failure, unspecified; R00.1 Bradycardia, unspecified; E86.0 Dehydration; I25.10 Atherosclerotic heart disease of native coronary artery without angina pectoris; I95.9 Hypotension, unspecified; E78.5 Hyperlipidemia, unspecified; K21.9 Gastro-esophageal reflux disease without esophagitis; I10 Essential (primary) hypertension; Z95.1 Presence of aortocoronary bypass graft; Z79.82 Long term (current) use of aspirin; Z87.891 Personal history of nicotine dependence; Z79.899 Other long term (current) drug therapy
CPT/HCPCS: 10081

== ENCOUNTER → 2019-01-24 | Outpatient (CLI) | payer OTHER ==
[~2019-01-24] MED LIST changes: +CEFDINIR300 MG PO; +CRESTOR10 MG PO; +PREDNISONE 10 M10 MG PO
--- NOTE | ~2019-01-24 | EEG ---
[facility] [place] [address] ELECTROENCEPHALOGRAM Name: TETE ROSE [facility] [id number] ������������������ Admission: 01/24/19 ������������������ Attend Phys: Tay Dan MD Discharge: ������������������ Date of : 55 Report #: [id number] ����������������������������������������������������������������� [id number] THIS REPORT FOR: //name// CC: Virgilio Dan DATE OF SERVICE: 01/24/2019 This patient is being evaluated for dizziness. EEG was done by placing the electrode by standard 10-20 system of electrode placement. Both referential and sequential montages were used for recording. Background activity in this patient's EEG is about 10-11 Hz and 30 microvolt. This patient became drowsy and that is associated with bilateral slowing and vertex sharp waves. Photic stimulation was unremarkable. Throughout the record, no active epileptiform activity was noticed. IMPRESSION: This patient's EEG is within normal limit. Thank you very much for this referral. ���������������������������������������� ���������������������������������������� By: ��������������������������������������������� 1636 1642 Tay aDn MD /nt
== END ==
LOC: NEURO 10:24
DX: R90.82 White matter disease, unspecified (principal); R42 Dizziness and giddiness; I10 Essential (primary) hypertension